=== PATIENT | male | born 2005 | race Caucasian/White ===

== ENCOUNTER 2024-06-22 11:15 | Emergency (ER) | payer MEDICAID ==
[~2024-06-22] VITALS: Ht 170.2 cm; Wt 70.3 kg
[2024-06-22 11:17] VITALS: PULSE 85; O2SAT 97
[2024-06-22 11:18] VITALS: BP 128/60; RESP 18; TEMP 98.3; O2SAT 99
== END 2024-06-22 14:20 | disposition home or self-care (01) ==
LOC: ER 11:15
DX: R00.2 Palpitations (principal)
CPT/HCPCS: 71045; 93005; 99284